=== PATIENT | female | born 1995 | race Caucasian/White ===

== ENCOUNTER 2020-03-21 11:22 | Outpatient (CLI) | payer BC | END 2020-03-21 23:59 | disposition home or self-care (01) | LOC: RAD 11:22 | PROVIDERS: ATTEND Family Medicine | DX: M25.571 Pain in right ankle and joints of right foot (principal); M79.604 Pain in right leg | CPT/HCPCS: 73590-TC; 73610-TC ==

== ENCOUNTER 2020-09-04 10:21 | Outpatient (CLI) | payer BC ==
[2020-09-04 15:42] LABS: BASOPHILS % (AUTO) 0.6 % (0.0-2.0); EOSINOPHILS % (AUTO) 0.7 % (0.0-6.0); HEMATOCRIT 40 % (33-45); HEMOGLOBIN 13.3 g/dL (11.5-14.8); LYMPHOCYTES # (AUTO) 1.9 /CMM (0.8-4.8); LYMPHOCYTES % (AUTO) 31.1 % (20.0-44.0); MEAN CORPUSCULAR HGB CONC 34 g/dl (31.0-36.0); MEAN CORPUSCULAR VOLUME 97 fL (82-100); MONOCYTES # (AUTO) 0.4 /CMM (0.1-1.30); MONOCYTES % (AUTO) 7.2 % (2.0-12.0); NEUTROPHILS # (AUTO) 3.7 /CMM (1.8-8.9); NEUTROPHILS % (AUTO) 60.4 % (43.0-81.0); PLATELET COUNT (AUTO) 188 /CMM (150-450); WHITE BLOOD COUNT (AUTO) 6.1 K/uL (4.3-11.0)
[2020-09-04 15:59] LABS: URIC ACID 2.3 mg/dL (2.6-7.2)
[2020-09-04 16:22] LABS: ALBUMIN 3.4 g/dL (3.4-5.0); BILIRUBIN,TOTAL 0.4 mg/dL (0.2-1.0); CALCIUM, SERUM 8.6 mg/dL (8.5-10.1); CREATININE 0.7 mg/dL (0.6-1.3); TOTAL PROTEIN, SERUM 7.1 g/dL (6.4-8.2)
== END 2020-09-04 23:59 | disposition home or self-care (01) ==
LOC: MRI 10:21
PROVIDERS: ATTEND Family Medicine
DX: M79.604 Pain in right leg (principal); M79.661 Pain in right lower leg; M79.662 Pain in left lower leg
CPT/HCPCS: 36415; 73718-TC; 80053-TC; 80061-TC; 84550-TC; 85025-TC

== ENCOUNTER 2020-09-05 08:38 | Outpatient (CLI) | payer BC | END 2020-09-05 23:59 | disposition home or self-care (01) | LOC: CARD 08:38 | PROVIDERS: ATTEND Family Medicine | DX: M79.604 Pain in right leg (principal) | CPT/HCPCS: 93971-TC ==

== ENCOUNTER 2020-09-14 08:29 | Outpatient (CLI) | payer BC | END 2020-09-14 23:59 | disposition home or self-care (01) | LOC: RAD 08:29 | PROVIDERS: ATTEND Family Medicine | DX: D75.89 Other specified diseases of blood and blood-forming organs (principal); M79.604 Pain in right leg | CPT/HCPCS: 73590-TC; 82784; 84155; 84165; 86334 ==

== ENCOUNTER 2020-10-16 11:08 | Outpatient (CLI) | payer BC | END 2020-10-16 23:59 | disposition home or self-care (01) | LOC: MRI 11:08 | PROVIDERS: ATTEND Family Medicine | DX: M51.27 Other intervertebral disc displacement, lumbosacral region (principal) | CPT/HCPCS: 72148-TC ==